=== PATIENT | male | born 1945 | race Caucasian/White ===

== ENCOUNTER 2017-01-07 12:26 | Outpatient (CLI) | payer MEDICARE, BC ==
[~2017-01-07] VITALS: Ht 182.9 cm; Wt 75.0 kg
[2017-01-07 13:16] VITALS: BP 110/77; Ht 182.9 cm; Wt 75.0 kg
== END 2017-01-07 13:30 | disposition home or self-care (01) ==
LOC: D.OPS 12:26
DX: M81.0 Age-related osteoporosis without current pathological fracture (principal)

== ENCOUNTER 2017-08-11 12:42 | Outpatient (CLI) | payer MEDICARE, BC ==
[2017-08-11 14:55] VITALS: BP 116/62
== END 2017-08-11 14:00 ==
LOC: D.OPS 12:42
DX: M81.0 Age-related osteoporosis without current pathological fracture (principal)

== ENCOUNTER 2018-09-15 20:01 | Inpatient (IN) | payer OTHER ==
[~2018-09-15] VITALS: Ht 182.9 cm; Wt 62.6 kg
--- NOTE | 2018-09-15 23:00 | NUR ---
PT ARRIVED TO FLOOR VIA STRETCHER. PT CONFUSED TO PLACE, TIME, SITUATION. MUMBLES INCOMPREHENSIBLE WORDS. VSS. WITHOUT IV ACCESS. NON PRODUCTIVE COUGH. CLAY DRAINING LEIGHA URINE. AND HOSPICE NURSE AT BEDSIDE. ORDERS RECIEVED. WILL CONT TO MONITOR
[2018-09-15 23:20] VITALS: BP 138/62; BMI 18.7
--- NOTE | 2018-09-16 06:20 | NUR ---
PT RESTLESS AND W/ TREMORS. ABLE TO STATE HE IS UNCOMFORTABLE. UNABLE TO GET IV ACCESS W/ PT RESTLESS AND MOVING HE IS. GAVE HALDOL IM X3 DOSES. PT WAS ABLE TO CALM AND BEGAN SLEEPING. 20G IV RIGHT FA X2 ATTEMPTS. PT RESTLESS AFTER IV ACCESS, GAVE ATIVAN ORDERED. UPON REASSESSMENT PT ASLEEP. PT WAS ABLE TO STATE HE WAS "COMFORTABLE" AND "OK" WHEN ASKED. ELEANOR ON, WILL CONT TO MONITOR
--- NOTE | 2018-09-16 07:10 | NUR ---
INITIAL ROUNDING ON THE PATIENT, HE IS RESTING WITH EYES CLOSED, BREATHS EVEN AND NOT LABORED. ON ROOM AIR AT THIS TIME, SUPINE.
[2018-09-16 12:24] VITALS: BP 140/802
--- NOTE | 2018-09-16 19:30 | NUR ---
PT LYING IN BED WITHOUT DISTRESS. BREATHING EVEN, UNLABORED. RESTING QUIETLY W/ EYES CLOSED. CLAY DRAINING LEIGHA-BLOODY URINE. IV RIGHT FA SL. CL IN REACH, ELEANOR ON. WILL CONT TO MONITOR
[2018-09-16 20:00] VITALS: BP 146/88
--- NOTE | 2018-09-16 21:45 | NUR ---
PT RESTLESS AND PULLING AT THINGS AROUND HIM UPON ENTERING ROOM. GAVE ATIVAN ORDERED. WILL CONT TO MONITOR
--- NOTE | 2018-09-17 04:15 | NUR ---
BATHED PT AND CHANGED LINEN. PLACED IN YELLOW GOWN, NON SLIP SOCKS. TOLERATED WELL. TURNED TO RT SIDE. ELEANOR ON, SRX2, BED LOW AND LOCKED. WILL CONT TO MONITOR
--- NOTE | 2018-09-17 06:50 | NUR ---
INITIAL ROUNDING, THE PATIENT IS RESTING IN BED, EYES CLOSED, LIGHTS OFF, PILLOWS SUPPORTING HIS HEAD AND RIGHT ARM. NO S/S OF DISTRESS NOTED. DOOR REMAINS OPEN FOR CLOSE MONITORING. NO FAMILY AT BEDSIDE
[2018-09-17 17:58] VITALS: BP 126/75
--- NOTE | 2018-09-17 19:30 | NUR ---
PT RESTING WITH EYES CLOSED. RESPIRATIONS NOTED. SNORES CAN BE HEARD. RESPIRATIONS OF 15 AT THIS TIME. PT IN SIGHT FROM NURSES DESK.
[2018-09-17 20:36] VITALS: BP 113/74
--- NOTE | 2018-09-18 01:32 | NUR ---
PT WAS SHAKING AND SEEMED UNCOMFORTABLE. PULLED ATIVAN TO ADMINISTER BUT WHEN WALKED BACK INTO THE PT ROOM, CENTERLESS GRINDER OPERATOR HAD REPOSITIONED PT AND PT HAD WENT BACK TO SLEEP. RETURNED ATIVAN TO [facility].
--- NOTE | 2018-09-18 02:35 | NUR ---
I have reviewed this patient and I concur with the Shift Assessment completed by the Licensed Practical Nurse today this shift.
--- NOTE | 2018-09-18 05:08 | NUR ---
PT SHAKING MORE NOW. GARBLED NOISES FROM TIME TO TIME. ADMINISTERING PAIN MEDS ORDERED.
--- NOTE | 2018-09-18 06:25 | NUR ---
ORAL CARE PROVIDED. RESPIRATIONS VERY SHALLOW AND 24
--- NOTE | 2018-09-18 07:00 | NUR ---
INITIAL ROUNDING ON THE PATIENT, HE IS SNORING, SUPINE, ON ROOM AIR. NO S/S OF PAIN/DISTRESS.
[2018-09-18 08:27] VITALS: BP 118/67
--- NOTE | 2018-09-18 17:07 | NUR ---
PATIENT SEENS TO BE RESTING COMFORTABLY AT THIS TIME. LAYING ON LEFT SIDE. URINE IN CLAY CATH IS DARK LEIGHA. RESP ARE EVEN AND NON LABORED. WILL MONITOR.
--- NOTE | 2018-09-18 17:45 | NUR ---
REPOSTIONED TO RIGHT SIDE WITH PILLOW BEHING BACK AND UNDER LEGS FOR COMFORT.
--- NOTE | 2018-09-18 19:18 | NUR ---
PATIENT RESTING IN BED AND OPENS EYES WHEN SPOKEN TO. BED IS IN LOWEST POSITION AND CALL LIGHT WITHIN REACH. WILL CONTINUE TO MONITOR.
[2018-09-18 20:21] VITALS: BP 131/88
--- NOTE | 2018-09-18 21:51 | NUR ---
REPOSITIONED PATIENT IN BED
--- NOTE | 2018-09-19 00:18 | NUR ---
PATIENT RESTING IN BED WITH EYES CLOSED. BREATHS EVEN AND UNLABORED. WILL CONTINUE TO MONITOR.
--- NOTE | 2018-09-19 01:52 | NUR ---
PATIENT RESTING IN BED WITH EYES CLOSED. BREATHS EVEN AND UNLABORED. WILL CONTINUE TO MONITOR.
--- NOTE | 2018-09-19 03:13 | NUR ---
PATIENT RESTING IN BED WITH EYES OPEN. BREATHS EVEN AND UNLABORED. WILL CONTINUE TO MONITOR.
--- NOTE | 2018-09-19 04:10 | NUR ---
PATIENT RESTING IN BED WITH EYES OPEN. BREATHS EVEN AND UNLABORED. WILL CONTINUE TO MONITOR.
--- NOTE | 2018-09-19 07:30 | NUR ---
PT RESTING IN BED, EYES OPEN. PT NONVERBAL. PT ON HOSPICE, DNR. PT HAS OBED. TURN Q2 HOURS. ELEANOR ALARM ON AND WORKING. IV TO RIGHT FOREARM, SL. ATIVAN AND MORPHINE PRN. NO C/O PAIN. NO S/S OF ACUTE DISTRESS NOTED. PT SEEMS COMFORTABLE. DENIES ANYTHING FURTHER AT THIS TIME. CALL LIGHT IN REACH. WILL CONTINUE TO MONITOR.
[2018-09-19 08:39] VITALS: BP 148/80
--- NOTE | 2018-09-19 16:00 | NUR ---
NONRESPONSIVE. FAMILY AT BEDSIDE. HOSPICE NURSE VISITS ROOM EARLIER TODAY. COMFORT CARE CONTINUED. AGREE WITH SPORTS MANAGEMENT INTERN SHIFT ASSESSMENT. BRANDON SANTOS CONTINUES PLAN OF CARE AND SAFETY PRECAUTIONS.
--- NOTE | 2018-09-19 18:35 | NUR ---
PT RESTING IN BED, COMFORTABLY. FAMILY AT BEDSIDE. VITALS STABLE. NO S/S OF DISTRESS NOTED. NO C/O PAIN. DENIES ANYTHING FURTHER AT THIS TIME. CALL LIGHT IN REACH. WILL CONTINUE TO MONITOR.
--- NOTE | 2018-09-19 19:36 | NUR ---
PATIENT RESTING IN BED WITH EYES CLOSED AND NO S/S OF DISTRESS. BREATHS EVEN AND UNLABORED. BED IN LOWEST POSITION AND CALL LIGHT WITHIN REACH. WILL CONTINUE TO MONITOR.
[2018-09-19 20:19] VITALS: BP 101/60
--- NOTE | 2018-09-19 20:50 | NUR ---
PATIENT RESTING IN BED WITH EYES CLOSED AND NO S/S OF DISTRESS AT THIS TIME. BED IN LOWEST POSITION AND CALL LIGHT WITHIN REACH. WILL CONTINUE TO MONITOR.
--- NOTE | 2018-09-20 03:52 | NUR ---
PATIENT RESTING IN BED WITH EYES CLOSED AND NO S/S OF DISTRESS. BED IN LOWEST POSITION AND CALL LIGHT WITHIN REACH. WILL CONTINUE TO MONITOR.
--- NOTE | 2018-09-20 05:14 | NUR ---
PATIENT RESTING IN BED WITH EYES CLOSED AND NO S/S OF DISTRESS. BED IN LOWEST POSITION AND CALL LIGHT WITHIN REACH. WILL CONTINUE TO MONITOR.
--- NOTE | 2018-09-20 06:53 | NUR ---
PATIENT RESTING IN BED WITH EYES CLOSED AND NO S/S OF DISTRESS. BED IN LOWEST POSITION AND CALL LIGHT WITHIN REACH. WILL CONTINUE TO MONITOR.
--- NOTE | 2018-09-20 07:43 | NUR ---
RESTING QUIETLY WITH EYES CLOSED. NON RESPONSIVE TO VERBAL OF TACTILE STIMULATION. LUNGS HAVE INSPIRATORY WHEEZES THROUGOUT MORE PRONOUNCED IN LOWER LOBES. NO COUGH NOTED. SKIN IS INTACT WITHOUT REDNESS. CLAY PATENT WITH DARK LEIGHA CLEAR URINE. NO NEEDS. NOTED. SL TO RIGHT WRIST IS PATENT WITHOUT REDNESS AT INSERTION SITE. NO NEEDS NOTED.
[2018-09-20 08:11] VITALS: BP 110/62
--- NOTE | 2018-09-20 09:34 | NUR ---
GIVEN 650MG TYLENOL SUPPOSITORY FOR TEMP OF 100.6. WILL MONITOR
--- NOTE | 2018-09-20 11:00 | NUR ---
PATIENT IS NON RESPONSIVE STILL. AT BEDSIDE AND HE ISN'T TALKING WTIH HER EITHER. REPOSITIONED IN BED. NO NEEDS NOTED.
--- NOTE | 2018-09-20 13:00 | NUR ---
REFUSED ANY OF LUNCH TRAY. NO CHANGES NOTED. REPOSITIONED IN BED FOR COMFORT.
[2018-09-20 15:00] VITALS: BP 105/57
--- NOTE | 2018-09-20 15:00 | NUR ---
APPEARS TO BE RESING EASIER WITH MORPHINE. NO NEEDS NOTED. REMAINS AT BEDSIDE. REPOSITIONED FOR COMFORT.
--- NOTE | 2018-09-20 17:00 | NUR ---
STILL NON RESPONSIVE TO STAFF OR FAMILY. APPERARS TO BE RESTING WELL. NO NEEDS NOTED. AT BEDSIDE. NO CHANGES NOTED.
[2018-09-20 17:02] VITALS: BP 117/62
--- NOTE | 2018-09-20 19:35 | NUR ---
PT REST IN BED, EYE CLOSE. BED LOW.
[2018-09-20 20:00] VITALS: BP 118/73
--- NOTE | 2018-09-21 01:03 | NUR ---
REST QUIELTY IN BED, CALL LIGHT IN REACH.
--- NOTE | 2018-09-21 01:10 | NUR ---
PT REST IN BED, BED LOW. NO S/S OF DISTRESS.
--- NOTE | 2018-09-21 02:00 | NUR ---
PT RESTING, EYES CLOSED. RR ARE EVEN AND UNLABORED. NO S/S OF DISTRESS. BED LOW. CL IN REACH. WCTM.
--- NOTE | 2018-09-21 03:46 | NUR ---
PT REST IN BED, EYE CLOSE, NO S/S OF DISTRESS. BED LOW.
--- NOTE | 2018-09-21 07:00 | NUR ---
PT LYING IN BED. EYES CLSOED. CHEST RISING AND FALLING. WILL CONTINUE TO MONITOR. BED LOW. CL IN REACH.
[2018-09-21 08:56] VITALS: Ht 182.9 cm; Wt 62.6 kg
[2018-09-21 09:23] VITALS: BP 101/49
--- NOTE | 2018-09-21 17:02 | NUR ---
PT TURNED WITH HELP OF TRAP OPERATOR. AT BEDSIDE. PT'S EYES CLOSED. CHEST RISING AND FALLING. WILL CONTINUE WITH PLAN OF CARE.
[2018-09-21 20:00] VITALS: BP 96/56
--- NOTE | 2018-09-21 23:35 | NUR ---
PT TEMP IS 100.6, TYLENOL SUPP 650MG GIVEN ORDERED.
--- NOTE | 2018-09-22 01:26 | NUR ---
RECHECKED PT TEMP 97.8 WILL CONTINUE MONITOR CLOSELY.
--- NOTE | 2018-09-22 03:25 | NUR ---
PT LETHARGIC, AROUSES TO TOUCH. LABORED BREATHING. PT IS NONVERBAL. RT FA INFUSING NS AT [facility] AND MORPHINE LABORER POWERHOUSE CONT, NO FAMILY PRESENT.
--- NOTE | 2018-09-22 07:27 | NUR ---
BEDSIDE SHIFT REPORT, INITIAL ROUNDING ON THE PATIENT. HE IS RESTING IN BED, LIGHTS OFF, ON HIS LEFT SIDE. KEY CUTTER INFUSING ORDERED. NO S/S OF PAIN/DISTRESS NOTED.
[2018-09-22 09:12] VITALS: BP 78/31
[2018-09-22 20:00] VITALS: BP 80/40
--- NOTE | 2018-09-23 07:00 | NUR ---
BEDSIDE SHIFT REPORT, INITIAL ROUNDING. PATIENT IS RESTING WITH EYES CLOSED, BREATHS UNEVEN AND APNIC AT TIMES. ON HIS LEFT SIDE, PILLOWS FOR SUPPORT, HEELS OFFLOADED WITH PILLOW. IV MORPHINE INFUSING.
[2018-09-23 08:00] VITALS: BP 80/40
--- NOTE | 2018-09-23 09:48 | NUR ---
INCREASED MORPHINE TO 1.0 MG CONTINOUS ORDERED WITH CHRISSY DEAN
[2018-09-23 16:00] VITALS: BP 61/32
--- NOTE | 2018-09-23 16:02 | MORECARE ---
CASE MANAGEMENT DISCHARGE SUMMARY PATIENT: YANNICK MARTINEZ UNIT: [id number] ADM DATE: 09/15/18 AGE: 73 : 47 SEX: M ROOM/BED: D.1204 AUTHOR: LESLIE ERVIN PHYSICIAN: REFERRING PHYSICIAN: DONA ROSALES MD DATE OF SERVICE: 09/23/18 Discharge Plan Patient Name: YANNICK [facility]ARTINEZ [facility] [facility] 1945 Planned Disposition: Anticipated Discharge Date: Discharge Date: Expected LOS: Initial Reviewer: [email or web address] Initial Review Date: 09/15/2018 Generated: 09/23/18 5:02 pm Patient Name: YANNICK MARTINEZ Page [id number] at 1602 All edits/amendments must be made on the electronic document DICTATION DATE: 09/23/181600 TRUCK GUARD: FRANKY 09/23/18 160 RPT#: [id number] DC DATE: STATUS: ADM IN [facility] [address] [place] [address] END OF REPORT
[2018-09-23 20:46] VITALS: BP 54/25
--- NOTE | 2018-09-24 06:55 | NUR ---
INITIAL ROUNDING, PATIENTS FAMILY AT BEDSIDE, NO S/S OF DISTRESS, ANXIETY.
[2018-09-24 08:16] VITALS: BP 43/21
--- NOTE | 2018-09-24 09:00 | NUR ---
PATIENTS FAMILY REFUSED BED BATH AT THIS TIME. PATIENT RESTING COMFORTABLY
--- NOTE | 2018-09-24 18:07 | NUR ---
PATIENTS SPOUSE CAME INTO THE [facility] AT 1734 STATING HER SPOUSE WAS NOT BREATHING. THE WAS ASSESSED AND WAS NOT BREATHING, AND NO HEART BEAT WAS HEARD. [facility] WAS NOTIFIED AT 1735. DAMIEN FROM [facility] JUST CALLED AND STATED SHE WOULD BE HERE IN APPROX 45 MIN, STATING SHE DID NOT GET THE CALL AT 1745 NOR THE CALL AT 1720 UNTIL JUST NOW
--- NOTE | 2018-09-27 09:24 | MORECARE ---
CASE MANAGEMENT DISCHARGE SUMMARY PATIENT: YANNICK MARTINEZ UNIT: [id number] ADM DATE: 09/15/18 AGE: 73 : 47 SEX: M ROOM/BED: D.1204 AUTHOR: LESLIE ERVIN PHYSICIAN: REFERRING PHYSICIAN: DONA ROSALES MD DATE OF SERVICE: 09/27/18 Discharge Plan Patient Name: YANNICK MARTINEZ [facility] [facility] 1945 Planned Disposition: Anticipated Discharge Date: Discharge Date: 09/24/2018 Expected LOS: Initial Reviewer: [email or web address] Initial Review Date: 09/15/2018 Generated: 09/27/18 10:24 am Last DP export: 09/23/18 3:02 p Patient Name: YANNICK MARTINEZ Page [id number] at 0924 All edits/amendments must be made on the electronic document DICTATION DATE: 09/27/18923 SPORTS SPECIALIST: FRANKY 09/27/18923 RPT#: [id number] DC DATE:09/24/18 STATUS: DIS IN [facility] [address] [place] [address] END OF REPORT
== END 2018-09-24 20:41 | DRG 951 ==
LOC: D.M3 20:01
PROVIDERS: ADMIT Legal Medicine; ATTEND Legal Medicine
DX: Z51.5 Encounter for palliative care (principal)